=== PATIENT | female | born 1950 | race Caucasian/White ===

== ENCOUNTER 2021-08-04 13:10 | Observation (INO) | payer OTHER ==
[2021-08-04 14:47] LABS: BASO % 0.7 % (0-2.0); EOS % 1.4 % (0-4.5); HEMATOCRIT 40.4 % (32.4-45.2); HEMOGLOBIN 13.5 GM/dL (10.7-15.3); LYMPH % 26.9 % (8-40); MCH 29.7 pg (25.7-33.7); MCHC 33.3 g/dl (32.0-36.0); MEAN CELL VOLUME 89.2 fl (80-96); MEAN PLT VOLUME 10.1 fl (7.5-11.1); MONO % 6.9 % (3.8-10.2); NEUT % 64.1 % (42.8-82.8); PLATELET COUNT 239 10^3/uL (134-434); RBC 4.54 M/mm3 (3.60-5.2); RDW 13.8 % (11.6-15.6); WHITE BLOOD COUNT 7.9 K/mm3 (4.0-10.0)
[2021-08-04 15:11] LABS: ALBUMIN 3.9 g/dl (3.4-5.0); BLOOD UREA NITROGEN 25.3 mg/dL (7-18); CALCIUM 9.3 mg/dL (8.5-10.1)
[2021-08-04 15:14] LABS: CREATININE 1.3 mg/dL (0.55-1.3)
[2021-08-04 15:16] LABS: BILIRUBIN,TOTAL 0.4 mg/dL (0.2-1)
[2021-08-04] MEDS ORDERED: ALPRAZolam 0.25 MG TABLET PO PRN (17:10)
[2021-08-04] MEDS: SODIUM CHLORIDE 1,000 ML IV SCH (18:59)
[2021-08-04 23:52] VITALS: BMI 30.7
[2021-08-05] MEDS ORDERED: DEXTROSE 50%-WATER 25 GM/50 ML DISP.SYRIN IVPUSH ONE (02:51)
[2021-08-05] MEDS ORDERED: DEXTROSE 50%-WATER 25 GM/50 ML DISP.SYRIN ONE (02:58)
[2021-08-05 07:20] LABS: BASO % 0.4 % (0-2.0); EOS % 3.1 % (0-4.5); HEMATOCRIT 34.5 % (32.4-45.2); LYMPH % 45.2 % (8-40); MCH 30.4 pg (25.7-33.7); MCHC 34.7 g/dl (32.0-36.0); MEAN CELL VOLUME 87.7 fl (80-96); MEAN PLT VOLUME 10.3 fl (7.5-11.1); MONO % 8.5 % (3.8-10.2); NEUT % 42.8 % (42.8-82.8); PLATELET COUNT 202 10^3/uL (134-434); RBC 3.94 M/mm3 (3.60-5.2); RDW 13.7 % (11.6-15.6); WHITE BLOOD COUNT 7.8 K/mm3 (4.0-10.0)
[2021-08-05 07:35] LABS: BLOOD UREA NITROGEN 19.5 mg/dL (7-18); CALCIUM 8.3 mg/dL (8.5-10.1); MAGNESIUM 2.2 mg/dL (1.8-2.4)
[2021-08-05 07:38] LABS: PHOSPHOROUS 3.6 mg/dL (2.5-4.9)
[2021-08-05 09:47] VITALS: BP 136/59
[2021-08-05] MEDS ORDERED: amLODIPine BESYLATE 10 MG TABLET (FP) PO SCH (10:00)
[2021-08-05] MEDS ORDERED: LISINOPRIL 10 MG TABLET PO ONE (10:00)
[2021-08-05] MEDS ORDERED: ENOXAPARIN NA (PORCINE) 40 MG/0.4 ML DISP.SYRIN SQ SCH (10:00)
[2021-08-05] MEDS: SODIUM CHLORIDE 1,000 ML IV SCH (11:31)
[2021-08-05] MEDS ORDERED: ACETAMINOPHEN 325 MG TABLET (FP) PO PRN (14:18)
[2021-08-05 15:46] VITALS: PULSE 57; TEMP 97.2
[2021-08-05] MEDS ORDERED: INSULIN SLIDING SCALE (NOVOLOG) 1 VIAL SQ SCH (16:30)
== END 2021-08-05 17:23 | disposition home or self-care (01) ==
LOC: JER 13:10 → JERBED 16:32 → UNDOADMOB 16:32 → INTOOBSV 17:06 → OBSVTOIN 17:06 → JERBED 21:47 → J4W 21:47 → JERBED 08-05 14:57
PROVIDERS: ADMIT Internal Medicine; ATTEND Internal Medicine
PROC: 3E023GC Introduction of Other Therapeutic Substance into Muscle, Percutaneous Approach (ICD-10-PCS; principal; 2021-08-05)
PROC: 3E0337Z Introduction of Electrolytic and Water Balance Substance into Peripheral Vein, Percutaneous Approach (ICD-10-PCS; 2021-08-05)
PROC: 3E013VG Introduction of Insulin into Subcutaneous Tissue, Percutaneous Approach (ICD-10-PCS; 2021-08-05)
DX: R55 Syncope and collapse (principal); R61 Generalized hyperhidrosis; R42 Dizziness and giddiness; F41.0 Panic disorder [episodic paroxysmal anxiety]; E11.9 Type 2 diabetes mellitus without complications; I10 Essential (primary) hypertension; E66.9 Obesity, unspecified; Z68.30 Body mass index [BMI] 30.0-30.9, adult; F17.210 Nicotine dependence, cigarettes, uncomplicated
CPT/HCPCS: 36415; 71045-TC-FY; 80048; 80053; 80061; 82962; 83036; 83735; 84100; 84443; 84484; 85025; 87804; 93005; 93010; 93306-TC; 96361; 96372; 96374; 97116-GP; 97162-GP; 99285-25; C9803-CS; G0378; U0003; U0005

== ENCOUNTER 2022-02-22 13:40 | Emergency (ER) | payer OTHER ==
[2022-02-22 13:43] VITALS: BP 114/60; PULSE 95; RESP 18; TEMP 99; BMI 26.2
[2022-02-22] MEDS ORDERED: IBUPROFEN 600 MG TABLET (FP) PO ONE ×2 (15:04→15:14)
[2022-02-22] MEDS ORDERED: ACETAMINOPHEN 500 MG TABLET (FP) PO ONE (15:04)
[2022-02-22] MEDS ORDERED: ACETAMINOPHEN 500 MG TABLET (FP) ONE (15:14)
== END 2022-02-22 16:10 | disposition home or self-care (01) ==
LOC: JER 13:40
DX: R05.1 Acute cough (principal); J02.9 Acute pharyngitis, unspecified
CPT/HCPCS: 0241U-QW; 99283-25

== ENCOUNTER 2022-05-14 10:58 | Emergency (ER) | payer OTHER ==
[2022-05-14 11:14] VITALS: RESP 18; BMI 28.3
[2022-05-14] MEDS ORDERED: ACETAMINOPHEN 1000 MG/100 ML BAG IVPB ONE (12:41)
[2022-05-14] MEDS ORDERED: ACETAMINOPHEN INJECTION 100 ML IVPB ONE (12:51)
[2022-05-14 13:31] LABS: BASO % 0.8 % (0-2.0); EOS % 1.6 % (0-4.5); HEMOGLOBIN 13.6 GM/dL (10.7-15.3); LYMPH % 27.4 % (8-40); MCH 30.5 pg (25.7-33.7); MEAN CELL VOLUME 89.6 fl (80-96); MEAN PLT VOLUME 9.7 fl (7.5-11.1); MONO % 7.9 % (3.8-10.2); NEUT % 62.3 % (42.8-82.8); PLATELET COUNT 254 10^3/uL (134-434); RBC 4.46 M/mm3 (3.60-5.2); WHITE BLOOD COUNT 8.4 K/mm3 (4.0-10.0)
[2022-05-14 13:33] LABS: EPI CELLS 13 /uL (0-25.1); HYALINE CASTS 1 /uL (0-3.1); PH,URINE 5.5 (5.0-8.0); URINE APPEARANCE CLEAR; URINE BACTERIA >9,000 /uL (0-1359); URINE BILIRUBIN NEGATIVE (NEGATIVE); URINE COLOR YELLOW; URINE GLUCOSE (UA) 3+ (NEGATIVE); URINE KETONE NEGATIVE (NEGATIVE); URINE LEUK ESTERASE 2+ (NEGATIVE); URINE NITRITE NEGATIVE (NEGATIVE); URINE PROTEIN NEGATIVE (NEGATIVE); URINE RBC 8 /uL (0-23.9); URINE UROBILINOGEN 0.2 mg/dL (0.2-1.0); URINE WBC 419 /uL (0-25.8)
[2022-05-14 13:56] LABS: CALCIUM 9.9 mg/dL (8.5-10.1)
[2022-05-14 13:57] LABS: BLOOD UREA NITROGEN 31.1 mg/dL (7-18)
[2022-05-14] MEDS ORDERED: SODIUM CHLORIDE 0.9% 500 ML INFUS.BAG IV ONE (13:59)
[2022-05-14 14:00] LABS: CREATININE 1.3 mg/dL (0.55-1.3)
[2022-05-14 14:01] LABS: TOT PROT 8.2 g/dl (6.4-8.2)
[2022-05-14 14:02] LABS: BILIRUBIN,TOTAL 0.4 mg/dL (0.2-1)
[2022-05-14 15:48] VITALS: BP 129/53; PULSE 56; TEMP 98
== END 2022-05-14 16:00 | disposition home or self-care (01) ==
LOC: JER 10:58
PROC: 3E0333Z Introduction of Anti-inflammatory into Peripheral Vein, Percutaneous Approach (ICD-10-PCS; principal; 2022-05-14)
DX: R10.11 Right upper quadrant pain (principal)
CPT/HCPCS: 36415; 76700-TC; 80053; 81003; 83690; 85025; 87086; 87186; 99284-25